=== PATIENT | female | born 1955 | race Caucasian/White ===

== ENCOUNTER 2018-11-26 08:31 | Outpatient (REF) | payer BC, SELFPAY ==
[2018-11-26 22:26] LABS: ALT 34 U/L (12-78); AST 21 U/L (15-37); Albumin 3.8 g/dL (3.4-5.0); Alkaline Phosphatase 89 U/L (46-116); Anion Gap 10.4 mmol/L (3-11); BUN 18 mg/dL (7-18); Bilirubin, Total 0.3 mg/dL (0.2-1.0); CO2 27.6 mmol/L (21.0-32.0); CREATININE 0.99 mg/dL (0.55-1.02); Chloride 101 mmol/L (98-107); Cholesterol 113 mg/dL (50-200); Estimated GFR 56.47 (mL/min/1.73m2); Glucose 176 mg/dL (70-100); HDL Cholesterol 25 mg/dL (40-60); LDL CHOLESTEROL 68 mg/dL (<100); Potassium 3.9 mmol/L (3.5-5.1); Sodium 139 mmol/L (136-145); Triglyceride 138 mg/dL (30-150)
[2018-11-26 23:00] LABS: Hemoglobin A1C 11.3 % (4.5-6.2)
== END 2018-11-26 08:51 ==
LOC: NCHCN 08:31
PROVIDERS: PCP Family Medicine; Visit Provider Family Medicine
DX: Z00.00 Encounter for general adult medical examination without abnormal findings (principal); E11.65 Type 2 diabetes mellitus with hyperglycemia; I10 Essential (primary) hypertension; E66.3 Overweight
CPT/HCPCS: 80053; 80061; 83721; 83036

== ENCOUNTER 2019-05-12 10:00 | Outpatient (REF) | payer BC, SELFPAY ==
[2019-05-12 21:03] LABS: COMMENT (LAB VIEW ONLY) 139.31 mg/dL; Microalb ug/mg Crea 9.8 ug/mg Cr
== END 2019-05-12 10:20 ==
LOC: NCHCN 10:00
PROVIDERS: PCP Family Medicine; Visit Provider Family Medicine
DX: E11.65 Type 2 diabetes mellitus with hyperglycemia (principal)
CPT/HCPCS: 82043; 82570

== ENCOUNTER 2020-07-06 08:29 | Outpatient (REF) | payer MEDICARE, BC, SELFPAY ==
[2020-07-06 22:29] LABS: Anion Gap 10.7 mmol/L (3-11); BUN 34 mg/dL (7-18); CO2 28.3 mmol/L (21.0-32.0); CREATININE 1.23 mg/dL (0.55-1.02); Calcium 9.3 mg/dL (8.5-10.1); Chloride 100 mmol/L (98-107); Estimated GFR 43.82 (mL/min/1.73m2); Glucose 94 mg/dL (74-106); Potassium 3.5 mmol/L (3.5-5.1); Sodium 139 mmol/L (136-145)
[2020-07-06 22:46] LABS: COMMENT (LAB VIEW ONLY) 75.58 mg/dL
[2020-07-06 22:53] LABS: Hemoglobin A1C 11.6 % (<5.7)
== END 2020-07-06 08:49 ==
LOC: NCHCN 08:29
PROVIDERS: PCP Family Medicine; Visit Provider Family Medicine
DX: E11.65 Type 2 diabetes mellitus with hyperglycemia (principal)
CPT/HCPCS: 80048; 82043; 82570; 83036

== ENCOUNTER 2021-01-17 08:43 | Outpatient (REF) | payer MEDICARE, BC, SELFPAY ==
[2021-01-17 14:06] LABS: Hemoglobin A1C 9.8 % (<5.7)
[2021-01-17 14:35] LABS: ALT 27 U/L (14-59); AST 18 U/L (15-37); Albumin 3.9 g/dL (3.4-5.0); Alkaline Phosphatase 101 U/L (46-116); Anion Gap 11.6 mmol/L (3-11); BUN 31 mg/dL (7-18); Bilirubin, Total 0.4 mg/dL (0.2-1.0); CO2 25.4 mmol/L (21.0-32.0); CREATININE 1.2 mg/dL (0.55-1.02); Calculated LDL 42 mg/dL (<100); Chloride 103 mmol/L (98-107); Cholesterol 124 mg/dL (<200); Estimated GFR 44.95 (mL/min/1.73m2); Glucose 140 mg/dL (74-106); HDL Cholesterol 25 mg/dL (40-60); Potassium 4.2 mmol/L (3.5-5.1); Sodium 140 mmol/L (136-145); Total Protein 7.1 g/dL (6.4-8.2); Triglyceride 285 mg/dL (<150)
== END 2021-01-17 08:44 | disposition home or self-care (01) ==
LOC: NCHCN 08:43
PROVIDERS: PCP Family Medicine; Visit Provider Family Medicine
DX: E11.65 Type 2 diabetes mellitus with hyperglycemia (principal); I10 Essential (primary) hypertension; E78.41 Elevated Lipoprotein(a); E66.3 Overweight
CPT/HCPCS: 80053; 80061; 83036

== ENCOUNTER 2021-04-24 15:15 | Outpatient (REF) | payer MEDICARE, BC, SELFPAY ==
[2021-04-24 14:46] LABS: Hemoglobin A1C 9.4 % (<5.7)
== END 2021-04-24 15:16 | disposition home or self-care (01) ==
LOC: NCHCN 15:15
PROVIDERS: PCP Family Medicine; Referring Provider Family Medicine; Visit Provider Family Medicine
DX: E11.65 Type 2 diabetes mellitus with hyperglycemia (principal)
CPT/HCPCS: 83036

== ENCOUNTER 2021-04-27 21:14 | Outpatient (REF) | payer MEDICARE, BC, SELFPAY ==
[2021-04-27 21:52] LABS: COMMENT (LAB VIEW ONLY) 38.16 mg/dL
== END 2021-04-27 21:15 | disposition home or self-care (01) ==
LOC: NCHCN 21:14
PROVIDERS: PCP Family Medicine; Visit Provider Family Medicine
DX: E11.65 Type 2 diabetes mellitus with hyperglycemia (principal)
CPT/HCPCS: 82043; 82570

== ENCOUNTER 2021-07-20 10:49 | Outpatient (REF) | payer MEDICARE, BC, SELFPAY ==
[2021-07-20 14:51] LABS: Anion Gap 12.3 mmol/L (3-11); BUN 28 mg/dL (7-18); CO2 23.7 mmol/L (21.0-32.0); CREATININE 1.2 mg/dL (0.55-1.02); Calcium 9.5 mg/dL (8.5-10.1); Chloride 103 mmol/L (98-107); Estimated GFR 44.95 (mL/min/1.73m2); Glucose 151 mg/dL (74-106); Potassium 4.2 mmol/L (3.5-5.1); Sodium 139 mmol/L (136-145)
[2021-07-20 14:53] LABS: Hemoglobin A1C 8.8 % (<5.7)
== END 2021-07-20 10:50 | disposition home or self-care (01) ==
LOC: NCHCN 10:49
PROVIDERS: PCP Family Medicine; Visit Provider Family Medicine
DX: E11.65 Type 2 diabetes mellitus with hyperglycemia (principal); E66.3 Overweight; I10 Essential (primary) hypertension
CPT/HCPCS: 80048; 83036

== ENCOUNTER 2022-01-18 18:10 | Outpatient (REF) | payer MEDICARE, BC, SELFPAY ==
[2022-01-18 16:29] LABS: Hemoglobin A1C 7.6 % (<5.7)
[2022-01-18 16:36] LABS: ALT 17 U/L (14-59); AST 19 U/L (15-37); Albumin 4.1 g/dL (3.4-5.0); Alkaline Phosphatase 100 U/L (46-116); Anion Gap 12.7 mmol/L (3-11); BUN 39 mg/dL (7-18); Bilirubin, Total 0.4 mg/dL (0.2-1.0); CO2 24.3 mmol/L (21.0-32.0); CREATININE 1.5 mg/dL (0.55-1.02); Calcium 9.2 mg/dL (8.5-10.1); Calculated LDL 61 mg/dL (<100); Chloride 100 mmol/L (98-107); Cholesterol 117 mg/dL (<200); Estimated GFR 34.64 (mL/min/1.73m2); Glucose 84 mg/dL (74-106); HDL Cholesterol 28 mg/dL (40-60); Potassium 4.3 mmol/L (3.5-5.1); Sodium 137 mmol/L (136-145); Total Protein 7.2 g/dL (6.4-8.2); Triglyceride 143 mg/dL (<150)
== END 2022-01-18 18:11 | disposition home or self-care (01) ==
LOC: NCHCN 18:10
PROVIDERS: PCP Family Medicine; Visit Provider Family Medicine
DX: E11.9 Type 2 diabetes mellitus without complications (principal); I10 Essential (primary) hypertension; E78.41 Elevated Lipoprotein(a)
CPT/HCPCS: 80053; 80061; 83036

== ENCOUNTER 2022-03-13 19:21 | Outpatient (REF) | payer MEDICARE, BC, SELFPAY ==
[2022-03-15 12:04] LABS: COVID-19 RT-PCR UVMMC Result Negative (Negative)
== END 2022-03-13 19:22 | disposition home or self-care (01) ==
LOC: NCHCN 19:21
PROVIDERS: PCP Family Medicine; Visit Provider Internal Medicine
DX: Z20.822 Contact with and (suspected) exposure to COVID-19 (principal); J06.9 Acute upper respiratory infection, unspecified
CPT/HCPCS: U0003; U0005

== ENCOUNTER 2022-06-19 10:33 | Outpatient (REF) | payer MEDICARE, BC, SELFPAY ==
[2022-06-19 14:51] LABS: Anion Gap 11.7 mmol/L (3-11); BUN 28 mg/dL (7-18); CO2 25.3 mmol/L (21.0-32.0); CREATININE 1.3 mg/dL (0.55-1.02); Chloride 100 mmol/L (98-107); Estimated GFR 45.07 (mL/min/1.73m2); Glucose 171 mg/dL (74-106); Sodium 137 mmol/L (136-145)
[2022-06-19 15:03] LABS: Hemoglobin A1C 9.4 % (<5.7)
== END 2022-06-19 10:34 | disposition home or self-care (01) ==
LOC: NCHCN 10:33
PROVIDERS: PCP Family Medicine; Visit Provider Family Medicine
DX: E11.9 Type 2 diabetes mellitus without complications (principal); I10 Essential (primary) hypertension; E66.3 Overweight
CPT/HCPCS: 80048; 83036

== ENCOUNTER 2022-06-26 18:48 | Outpatient (REF) | payer MEDICARE, BC, SELFPAY ==
[2022-06-26 16:37] LABS: COMMENT (LAB VIEW ONLY) 43.14 mg/dL; Microalb ug/mg Crea 3.7 ug/mg Cr
== END 2022-06-26 18:49 | disposition home or self-care (01) ==
LOC: NCHCN 18:48
PROVIDERS: PCP Family Medicine; Visit Provider Family Medicine
DX: E11.9 Type 2 diabetes mellitus without complications (principal)
CPT/HCPCS: 82043; 82570

== ENCOUNTER 2023-06-14 17:37 | Outpatient (REF) | payer MEDICARE, BC, SELFPAY ==
[2023-06-14 14:57] LABS: Hemoglobin A1C 8.2 % (<5.7)
[2023-06-14 15:18] LABS: ALT 23 U/L (14-59); AST 19 U/L (15-37); Albumin 3.9 g/dL (3.4-5.0); Alkaline Phosphatase 74 U/L (46-116); Anion Gap 12.2 mmol/L (3-11); BUN 14 mg/dL (7-18); Bilirubin, Total 0.2 mg/dL (0.2-1.0); CO2 22.8 mmol/L (21.0-32.0); Calcium 9.3 mg/dL (8.5-10.1); Calculated LDL 36 mg/dL (<100); Chloride 104 mmol/L (98-107); Cholesterol 88 mg/dL (<200); Estimated GFR 61.36 (mL/min/1.73m2); Glucose 104 mg/dL (74-106); HDL Cholesterol 30 mg/dL (40-60); Potassium 4.4 mmol/L (3.5-5.1); Sodium 139 mmol/L (136-145); Total Protein 7.3 g/dL (6.4-8.2); Triglyceride 114 mg/dL (<150)
[2023-06-14 15:38] LABS: Vitamin D 25 Total 43.5 ng/mL (30-100)
--- OUTSIDE RECORDS SUMMARY | 2023-06-14 17:40 | XMS_ITS | CCD ---
Author Name Unknown Address [address] [place] [address] [id number] Organization Unknown Address [address] [place], [place] [id number] Care Team Providers Care Cabinet Mounter Name Role Phone KODAK BARAJAS Attending Physician [phone] KODAK BARAJAS Rounding (Secondary) Physician [phone] Vital Signs Unknown or Not Available. Allergies Allergy Code Allergy Type Reaction Status LISINOPRIL 20845 Drug allergy BODY ACHE Active IBUPROFEN 5640 Drug allergy FACIAL AND LEG SWELLING Active Procedures Unknown or Not Available. History of Immunizations Unknown or Not Available. Problems Unknown or Not Available. Results Unknown or Not Available. Active Medications Unknown or Not Available. Medications Administered During Visit Unknown or Not Available. Encounters Encounter Diagnosis Diagnosis Code Start Date Trigger thumb of left hand [id number] 01/11 Social History Smoking Status Code Start Date End Date Current every day smoker [id number] 08/05/1973 Patient Decision Aids Unknown or Not Available. Discharge Instructions You were admitted to [facility] on 01/11/2022 11:16 with a principal diagnosis of Trigger thumb, left thumb You were discharged from [facility] on 01/11/2022 00:00 Should you have any questions prior to discharge, please contact a member of your healthcare team. If you have left the hospital and have any questions, please contact your primary care physician. Chief Complaint and Reason For Visit Unknown or Not Available. Function Status Unknown or Not Available. Plan of Care Unknown or Not Available. Referral/Transition of Care Unknown or Not Available.
--- OUTSIDE RECORDS SUMMARY | 2023-06-14 17:40 | XMS_ITS | CCD ---
Author Name Unknown Address [address] [place] [address] [id number] Organization Unknown Address [address] [place], [place] [id number] Care Team Providers Care Veterinary Science Teacher Name Role Phone GUILLERMINA COBIAN Attending Physician [phone] Vital Signs Unknown or Not Available. Allergies Allergy Code Allergy Type Reaction Status LISINOPRIL 16335 Drug allergy BODY ACHE Active IBUPROFEN 5640 Drug allergy FACIAL AND LEG SWELLING Active Procedures Unknown or Not Available. History of Immunizations Unknown or Not Available. Problems Unknown or Not Available. Results Unknown or Not Available. Active Medications Unknown or Not Available. Medications Administered During Visit Unknown or Not Available. Encounters Encounter Diagnosis Diagnosis Code Start Date Solitary cyst of left breast [id number] 08/2022 Social History Smoking Status Code Start Date End Date Current every day smoker [id number] 08/05/1973 Patient Decision Aids Unknown or Not Available. Discharge Instructions You were admitted to [facility] on 09/05/2022 13:55 with a principal diagnosis of Solitary cyst of left breast You were discharged from [facility] on 09/05/2022 13:55 Should you have any questions prior to [...]
--- OUTSIDE RECORDS SUMMARY | 2023-06-14 17:40 | XMS_ITS | CCD ---
Author Name Unknown Address [address] [place] [address] [id number] Organization Unknown Address [address] [place], [place] [phone] Care Team Providers Care Academic Guidance Specialist Name Role Phone SILVANO REBOLLEDO Attending Physician [phone] Vital Signs Unknown or Not Available. Allergies Allergy Code Allergy Type Reaction Status LISINOPRIL 86802 Drug allergy BODY ACHE Active IBUPROFEN 5640 Drug allergy FACIAL AND LEG SWELLING Active Procedures Unknown or Not Available. History of Immunizations Unknown or Not Available. Problems Unknown or Not Available. Results Unknown or Not Available. Active Medications Unknown or Not Available. Medications Administered During Visit Unknown or Not Available. Encounters Encounter Diagnosis Diagnosis Code Start Date Other specified cough R058 03/13/2022 Social History Smoking Status Code Start Date End Date Current every day smoker [id number] 08/05/1973 Patient Decision Aids Unknown or Not Available. Discharge Instructions You were admitted to [facility] on 03/13/2022 16:35 with a principal diagnosis of Other specified cough You were discharged from [facility] on 03/13/2022 16:35 Should you have any questions prior to [...]
--- OUTSIDE RECORDS SUMMARY | 2023-06-14 17:40 | XMS_ITS | CCD ---
Author Name Unknown Address [address] [place] [address] [id number] Organization Unknown Address [address] [place], [place] [id number] Care Team Providers Care Rn Emergency Room Name Role Phone GUILLERMINA COBIAN Attending Physician [phone] Vital Signs Unknown or Not Available. Allergies Allergy Code Allergy Type Reaction Status LISINOPRIL 18675 Drug allergy BODY ACHE Active IBUPROFEN 5640 Drug allergy FACIAL AND LEG SWELLING Active Procedures Unknown or Not Available. History of Immunizations Unknown or Not Available. Problems Unknown or Not Available. Results Unknown or Not Available. Active Medications Unknown or Not Available. Medications Administered During Visit Unknown or Not Available. Encounters Unknown or Not Available. Social History Smoking Status Code Start Date End Date Current every day smoker [id number] 08/05/1973 Patient Decision Aids Unknown or Not Available. Discharge Instructions You were admitted to [facility] on 08/15/2022 12:10 You were discharged from [facility] on 08/15/2022 12:10 Should you have any questions prior to [...]
== END 2023-06-14 17:38 | disposition home or self-care (01) ==
LOC: NCHCN 17:37
PROVIDERS: PCP Family Medicine; Visit Provider Family Medicine
DX: E11.9 Type 2 diabetes mellitus without complications (principal); N18.30 Chronic kidney disease, stage 3 unspecified; I10 Essential (primary) hypertension; Z00.00 Encounter for general adult medical examination without abnormal findings
CPT/HCPCS: 80053; 80061; 82306; 83036

== ENCOUNTER 2023-06-19 13:00 | Outpatient (REF) | payer MEDICARE, BC, SELFPAY ==
--- OUTSIDE RECORDS SUMMARY | 2023-06-19 13:03 | XMS_ITS | CCD ---
Author Name Unknown Address [address] [place] [address] [id number] Organization Unknown Address [address] [place], [place] [phone] Care Team Providers Care Weight Loss Counselor Name Role Phone GUILLERMINA COBIAN Attending Physician [phone] Vital Signs Unknown or Not Available. Allergies Allergy Code Allergy Type Reaction Status LISINOPRIL 71417 Drug allergy BODY ACHE Active IBUPROFEN 5640 [...] Date End Date Current every day smoker [id number] 08/05/1973 Patient Decision Aids Unknown or Not Available. Discharge Instructions You were admitted to [facility] on 08/15/2022 12:10 You were discharged from [facility] on 08/15/2022 12:10 Should you have any [...]
--- OUTSIDE RECORDS SUMMARY | 2023-06-19 13:03 | XMS_ITS | CCD ---
Author Name Unknown Address [address] [place] [address] [id number] Organization Unknown Address [address] [place], [place] [phone] Care Team Providers Care Flatwork Folder Name Role Phone GUILLERMINA COBIAN Attending Physician [phone] Vital Signs Unknown or Not Available. Allergies Allergy Code Allergy Type Reaction Status LISINOPRIL 91546 Drug allergy BODY ACHE Active IBUPROFEN 5640 Drug allergy FACIAL AND LEG SWELLING Active Procedures Unknown or Not Available. History of Immunizations Unknown or Not Available. Problems Unknown or Not Available. Results Unknown or Not Available. Active Medications Unknown or Not Available. Medications Administered During Visit Unknown or Not Available. Encounters Encounter Diagnosis Diagnosis Code Start Date Encounter for screening mamm ogram for malignant neoplasm of breast [id number] 08/29/2022 Social History Smoking Status Code Start Date End Date Current every day smoker [id number] 08/05/1973 Patient Decision Aids Unknown or Not Available. Discharge Instructions You were admitted to [facility] on 08/29/2022 08:39 with a principal diagnosis of Encounter for screening mammogram for malignant neoplasm of breast You were discharged from [facility] on 08/29/2022 08:39 Should you have any questions prior to discharge, please contact a member of your healthcare team. If you have left the hospital and have any questions, please contact your primary care physician. Chief Complaint and Reason For Visit Chief Complaint Date of Onset POSTMENOPAUSAL Function Status Unknown or Not Available. Plan of Care Unknown or Not Available. Referral/Transition of Care Unknown or Not Available.
--- OUTSIDE RECORDS SUMMARY | 2023-06-19 13:04 | XMS_ITS | CCD ---
Author Name Unknown Address [address] [place] [address] [id number] Organization Unknown Address [address] [place], [place] [phone] Care Team Providers Care Consumer Safety Officer Name Role Phone SILVANO REBOLLEDO Attending Physician [phone] Vital Signs Unknown or Not Available. Allergies Allergy Code Allergy Type Reaction Status LISINOPRIL 52381 Drug allergy BODY ACHE Active IBUPROFEN 5640 [...] Date End Date Current every day smoker [id number] 08/05/1973 Patient Decision Aids Unknown or Not Available. Discharge Instructions You were admitted to [facility] on 03/13/2022 16:35 with a principal diagnosis of Other specified cough You were discharged from [facility] on 03/13/2022 16:35 Should you have [...]
--- OUTSIDE RECORDS SUMMARY | 2023-06-19 13:04 | XMS_ITS | CCD ---
Author Name Unknown Address [address] [place] [address] [phone] Organization Unknown Address [address] [place], [place] [phone] Care Team Providers Care Service Center Specialist Name Role Phone KODAK BARAJAS Attending Physician [phone] KODAK BARAJAS Rounding (Secondary) Physician [phone] Vital Signs Unknown or Not Available. Allergies Allergy Code Allergy Type Reaction Status LISINOPRIL 70246 Drug allergy BODY ACHE Active IBUPROFEN 5640 Drug allergy FACIAL AND LEG SWELLING Active Procedures Unknown or Not Available. History of Immunizations Unknown or Not Available. Problems Unknown or Not Available. Results Unknown or Not Available. Active Medications Unknown or Not Available. Medications Administered During Visit Unknown or Not Available. Encounters Encounter Diagnosis Diagnosis Code Start Date Trigger thumb of left hand [id number] 01/11 Social History Smoking Status Code Start Date End Date Current every day smoker [id number] 08/05/1973 Patient Decision Aids Unknown or Not Available. Discharge Instructions You were admitted to [facility] on 01/11/2022 11:16 with a principal diagnosis of Trigger thumb, left thumb You were discharged from [facility] on 01/11/2022 00:00 Should you [...]
[2023-06-19 21:37] LABS: COMMENT (LAB VIEW ONLY) 23.73 mg/dL; Microalb ug/mg Crea 31.2 ug/mg Cr
== END 2023-06-19 13:01 | disposition home or self-care (01) ==
LOC: NCHCN 13:00
PROVIDERS: PCP Family Medicine; Visit Provider Family Medicine
DX: E11.9 Type 2 diabetes mellitus without complications (principal)
CPT/HCPCS: 82043; 82570

== ENCOUNTER 2024-06-17 10:15 | Outpatient (REF) | payer MEDICARE, BC, SELFPAY ==
[2024-06-17 15:06] LABS: Hemoglobin A1C 7.5 % (<5.7)
[2024-06-17 15:23] LABS: ALT 23 U/L (14-59); AST 15 U/L (15-37); Albumin 4.2 g/dL (3.4-5.0); Alkaline Phosphatase 74 U/L (46-116); Anion Gap 10.7 mmol/L (3-11); BUN 25 mg/dL (7-18); Bilirubin, Total 0.43 mg/dL (0.2-1.0); CO2 26.3 mmol/L (21.0-32.0); CREATININE 1.2 mg/dL (0.55-1.02); Calcium 9.4 mg/dL (8.5-10.1); Calculated LDL 69 mg/dL (<100); Chloride 108 mmol/L (98-107); Cholesterol 138 mg/dL (<200); Ferritin 79 ng/mL (8-252); Glucose 103 mg/dL (74-106); HDL Cholesterol 38 mg/dL (40-60); Sodium 145 mmol/L (136-145); Total Protein 7.3 g/dL (6.4-8.2); Triglyceride 158 mg/dL (<150)
== END 2024-06-17 10:16 | disposition home or self-care (01) ==
LOC: NCHCN 10:15
PROVIDERS: PCP Family Medicine; Visit Provider Family Medicine
DX: E11.9 Type 2 diabetes mellitus without complications (principal); E78.5 Hyperlipidemia, unspecified; N18.30 Chronic kidney disease, stage 3 unspecified; D64.9 Anemia, unspecified
CPT/HCPCS: 80053; 80061; 82728; 83036

== ENCOUNTER 2024-06-23 09:27 | Outpatient (REF) | payer MEDICARE, BC, SELFPAY ==
[2024-06-23 16:37] LABS: COMMENT (LAB VIEW ONLY) 45.31 mg/dL; Microalb ug/mg Crea 43.5 ug/mg Cr
== END 2024-06-23 09:28 | disposition home or self-care (01) ==
LOC: NCHCN 09:27
PROVIDERS: PCP Family Medicine; Visit Provider Family Medicine
DX: E11.9 Type 2 diabetes mellitus without complications (principal)
CPT/HCPCS: 82043; 82570

== ENCOUNTER 2025-06-15 10:32 | Outpatient (REF) | payer MEDICARE, BC, SELFPAY ==
[2025-06-15 15:01] LABS: ALT 18 U/L (10-49); AST 22 U/L (<34); Albumin 4.6 g/dL (3.4-5.0); Alkaline Phosphatase 79 U/L (46-116); Anion Gap 4.5 mmol/L (3-11); BUN 17 mg/dL (9-23); Bilirubin, Total 0.40 mg/dL (0.2-1.2); CO2 22.5 mmol/L (20.0-31.0); Calcium 9.3 mg/dL (8.3-10.6); Chloride 112 mmol/L (98-107); Cholesterol 111 mg/dL (<200); Glucose 99 mg/dL (74-106); HDL Cholesterol 29 mg/dL (>40); Potassium 4.2 mmol/L (3.5-5.1); Sodium 139 mmol/L (136-145); Total Protein 7.1 g/dL (5.7-8.2)
[2025-06-15 15:30] LABS: Hemoglobin A1C 7.1 % (<5.7)
== END 2025-06-15 10:33 | disposition home or self-care (01) ==
LOC: NCHCN 10:32
PROVIDERS: PCP Family Medicine; Visit Provider Family Medicine
DX: E11.9 Type 2 diabetes mellitus without complications (principal); E78.41 Elevated Lipoprotein(a)
CPT/HCPCS: 80053; 80061; 83036

== ENCOUNTER 2025-06-22 14:53 | Outpatient (REF) | payer MEDICARE, BC, SELFPAY ==
[2025-06-22 16:57] LABS: Microalb ug/mg Crea 12.4 ug/mg Cr
== END 2025-06-22 14:54 | disposition home or self-care (01) ==
LOC: NCHCN 14:53
PROVIDERS: PCP Family Medicine; Visit Provider Family Medicine
DX: Z79.4 Long term (current) use of insulin (principal); E11.42 Type 2 diabetes mellitus with diabetic polyneuropathy
CPT/HCPCS: 82043; 82570